=== PATIENT | male | born 1955 | race Caucasian/White ===

== ENCOUNTER 2020-08-09 08:52 | Observation (INO) | payer BC ==
[~2020-08-09] VITALS: Ht 170.2 cm; Wt 85.5 kg
[2020-08-09] MEDS ORDERED: ONDANSETRON 2MG/ML, 2ML ONE (09:35)
[2020-08-09] MEDS ORDERED: ASPIRIN 81 MG TABLET CHEW ONE (09:36)
[2020-08-09] MEDS ORDERED: MORPHINE SULFATE 4 MG/ML, 1ML ONE (09:36)
[2020-08-09 09:55] LABS: BASOPHILS % (AUTO) 1 % (0-1); EOSINOPHILS % (AUTO) 1 % (1-7); LYMPHOCYTES % (AUTO) 23 % (22-44); MEAN CORPUSCULAR HEMOGLOBIN 31.6 pg (27.5-34.5); MEAN CORPUSCULAR HGB CONC 34.8 g/dL (33.2-36.2); MONOCYTES % (AUTO) 6 % (2-9); NEUTROPHILS % (AUTO) 68 % (42-75); PLATELET COUNT 185 x10^3/uL (130-400); RED BLOOD COUNT 4.88 x10^6/uL (4.38-5.82); RED CELL DISTRIBUTION WIDTH 13.2 % (9.4-14.8)
[2020-08-09 09:58] LABS: ALANINE AMINOTRANSFERASE 50 U/L (12-78); ALBUMIN 3.6 g/dL (3.4-5.0); ANION GAP 4 mmol/L (5-15); CALCIUM 8.1 mg/dL (8.5-10.1); CHLORIDE 106 mmol/L (98-107); CREATININE 0.67 mg/dL (0.7-1.3)
[2020-08-09] MEDS ORDERED: ONDANSETRON 2MG/ML, 2ML IVPush ONE (10:00)
[2020-08-09] MEDS ORDERED: SODIUM CHLORIDE FLUSH 10ML SYR IVF ONE (10:00)
[2020-08-09] MEDS ORDERED: ASPIRIN 81 MG TABLET CHEW PO ONE (10:00)
[2020-08-09] MEDS ORDERED: MORPHINE SULFATE 4 MG/ML, 1ML IVPush PRN (10:00)
[2020-08-09 10:08] LABS: ALKALINE PHOSPHATASE 122 U/L (45-117); BILIRUBIN,TOTAL 0.4 mg/dL (0.2-1.0); TOTAL PROTEIN 6.3 g/dL (6.4-8.2); TROPONIN I < 0.015 ng/mL (0.000-0.045)
--- NOTE | 2020-08-09 10:22 | NUR ---
VSS, DENIES ANY PAIN AT THIS TIME. ALL TESTS RESULTED AND CHART UP FOR RECHECK. PT AWARE
[2020-08-09] MEDS ORDERED: CLOP75TA52 PO (10:24)
[2020-08-09] MEDS ORDERED: ASPI81TA45 PO (10:24)
[2020-08-09] MEDS ORDERED: ATOR-2 PO (10:24)
[2020-08-09] MEDS ORDERED: LOSA50TA14 PO (10:24)
[2020-08-09] MEDS ORDERED: CLOPIDOGREL 75 MG TABLET PO SCH (11:30)
[2020-08-09] MEDS ORDERED: ONDANSETRON 2MG/ML, 2ML IVPush PRN (11:30)
[2020-08-09] MEDS ORDERED: ONDANSETRON ODT 4 MG PO PRN (11:30)
[2020-08-09] MEDS ORDERED: SODIUM CHLORIDE FLUSH 10ML SYR IVF PRN (11:30)
[2020-08-09] MEDS ORDERED: ACETAMINOPHEN 325 MG TABLET PO PRN (11:30)
[2020-08-09] MEDS ORDERED: morphine SULFATE 10 MG/ML, 1ML IVPush PRN (11:30)
[2020-08-09] MEDS ORDERED: ENALAPRILAT 1.25 MG/ML, 2ML IVPush PRN (11:30)
[2020-08-09 11:51] VITALS: BP 123/73
[2020-08-09 13:15] LABS: TROPONIN I 0.098 ng/mL (0.000-0.045)
[2020-08-09 15:20] VITALS: BP 149/83
[2020-08-09] MEDS ORDERED: HEPARIN 5,000 UNITS/ML, 1ML IV ONE (15:30)
[2020-08-09] MEDS ORDERED: HEPARIN 25,000 UNITS/250ML PMX 250 ML IV PRN (15:30)
[2020-08-09] MEDS ORDERED: HEPARIN 5,000 UNITS/ML, 1ML IV PRN (15:30)
[2020-08-09 15:35] LABS: CHOL/HDL RATIO 4.1; LDL/HDL RATIO 1.8 (0.5-3.0)
[2020-08-09] MEDS: METOPROLOL SUCCINATE 25 MG TAB.ER.24H PO SCH (16:03)
[2020-08-09 17:22] LABS: TROPONIN I 0.234 ng/mL (0.000-0.045)
[2020-08-09 20:14] VITALS: BP 118/67
[2020-08-09] MEDS ORDERED: ATORVASTATIN 20 MG TABLET PO SCH (21:00)
[2020-08-09] MEDS ORDERED: ATORVASTATIN 40 MG TABLET PO SCH (21:00)
[2020-08-10 01:35] VITALS: BP 120/74
[2020-08-10 05:26] LABS: BASOPHILS % (AUTO) 1 % (0-1); EOSINOPHILS % (AUTO) 2 % (1-7); LYMPHOCYTES % (AUTO) 35 % (22-44); MEAN CORPUSCULAR HEMOGLOBIN 31.9 pg (27.5-34.5); MEAN CORPUSCULAR HGB CONC 34.7 g/dL (33.2-36.2); MONOCYTES % (AUTO) 6 % (2-9); NEUTROPHILS % (AUTO) 57 % (42-75); PLATELET COUNT 188 x10^3/uL (130-400); RED BLOOD COUNT 5.01 x10^6/uL (4.38-5.82); RED CELL DISTRIBUTION WIDTH 13.2 % (9.4-14.8)
[2020-08-10 05:40] LABS: ANION GAP 6 mmol/L (5-15); CALCIUM 8.3 mg/dL (8.5-10.1); CHLORIDE 108 mmol/L (98-107)
[2020-08-10 05:46] LABS: CHOL/HDL RATIO 4.2; CHOLESTEROL, TOTAL 121 mg/dL (140-239); CREATININE 0.66 mg/dL (0.7-1.3); HDL CHOL % 24 % (26-37); HDL CHOLESTEROL (DIRECT) 29 mg/dL (40-60); LDL CHOLESTEROL,CALCULATED 50 mg/dL (54-169); LDL/HDL RATIO 1.7 (0.5-3.0); TRIGLYCERIDES 210 mg/dL (50-200); VLDL CHOLESTEROL 42 mg/dL (0-25)
[2020-08-10] MEDS ORDERED: ASPIRIN 325 MG TABLET EC PO SCH (06:00)
[2020-08-10] MEDS ORDERED: ASPIRIN 81 MG TABLET EC PO SCH (06:00)
[2020-08-10] MEDS: METOPROLOL SUCCINATE 25 MG TAB.ER.24H PO SCH (06:04)
[2020-08-10] MEDS ORDERED: LOSARTAN 50MG TABLET PO SCH (07:00)
[2020-08-10] MEDS: LOSARTAN 50MG TABLET PO SCH ×2 (07:00→10:04)
[2020-08-10 08:21] VITALS: BP 134/77
[2020-08-10] MEDS ORDERED: CLOPIDOGREL 75 MG TABLET PO SCH (09:00)
[2020-08-10] MEDS: SODIUM CHLORIDE 0.9% 1,000 ML IV SCH ×2 (11:35→17:20)
[2020-08-10] MEDS ORDERED: MIDAZOLAM 1 MG/ML, 5ML ONE (14:11)
[2020-08-10] MEDS ORDERED: VERAPAMIL 2.5 MG/ML, 2ML ONE (14:11)
[2020-08-10] MEDS ORDERED: LIDOCAINE-MPF 1%, 5ML ONE (14:11)
[2020-08-10] MEDS ORDERED: FENTANYL PF 100 MCG/2ML ONE (14:11)
[2020-08-10] MEDS ORDERED: HEPARIN 1,000 UNITS/ML, 10ML ONE (14:12)
[2020-08-10 15:45] VITALS: BP 147/87
[2020-08-10 18:52] VITALS: BP 133/79
== END 2020-08-10 20:10 | disposition home or self-care (01) ==
LOC: ED 11:05 → INTOOBSV 11:06 → EDIP 11:06 → SUATTDRO 11:18 → 5SO 11:41
PROVIDERS: ADMIT Internal Medicine; ATTEND Hospitalist
DX: R07.89 Other chest pain (principal); I25.110 Atherosclerotic heart disease of native coronary artery with unstable angina pectoris; E11.65 Type 2 diabetes mellitus with hyperglycemia; I10 Essential (primary) hypertension; E78.5 Hyperlipidemia, unspecified; I25.2 Old myocardial infarction; F17.210 Nicotine dependence, cigarettes, uncomplicated; Z79.899 Other long term (current) drug therapy; Z79.84 Long term (current) use of oral hypoglycemic drugs; Z79.82 Long term (current) use of aspirin; Z95.5 Presence of coronary angioplasty implant and graft; Z87.19 Personal history of other diseases of the digestive system
CPT/HCPCS: 36415; 71045; 80048; 80053; 80061; 82962; 83036; 83735; 84443; 84484; 85025; 85520; 93005; 93306; 93356; 93458; 93571; 96365; 96366; 96375; 96376; 99156; 99157; 99285; C1769; C1894; G0378; J1644; J2250; J2270; J2405; J3010; J7030; Q9967